=== PATIENT | male | born 1955 | race Caucasian/White ===

== ENCOUNTER 2017-09-18 09:25 | Emergency (ER) | payer BC, OTHER ==
[2017-09-18] MEDS ORDERED: Sodium Chloride 0.9% 10 ML Syringe FLUSH PRN (10:16)
[2017-09-18] MEDS ORDERED: HYDROmorphone 0.5 MG/0.5 ML SYRINGE IVPUSH ONE (10:17)
[2017-09-18] MEDS ORDERED: Sodium Chloride 0.9% 500 ML IV ONE (10:18)
[2017-09-18] MEDS ORDERED: Ondansetron 4 MG/2 ML SDV IVPUSH ONE (10:18)
--- NOTE | 2017-09-18 12:13 | CT ---
CT abdomen and pelvis Technique: Multiple axial sections were obtained from above the dome of the diaphragm inferiorly to the pubic symphysis. Intravenous and oral contrast not utilized. Study has been performed as a ureteral stone protocol. Findings: Inflammatory change is seen around the right kidney. Right collecting system is dilated as as well as mildly dilated right ureter. These findings are caused by an obstructing 6.8 mm stone within the distal right ureter at the UVJ. No other abnormal calcifications are seen along the course of the ureters. Visualized lung bases shows nothing acute. Noncontrast appearance of the liver appears within normal limits. Spleen appears within normal limits. Adrenal glands show no nodule. Pancreas is within normal limits. Gallbladder contains no calcified gallstones. Air collection is seen next to the pancreas most likely representing a duodenal diverticulum. Aorta shows atherosclerotic change without aneurysm. No retroperitoneal adenopathy or mesenteric abnormalities are seen. Diverticuli are seen within the sigmoid and descending colon. No pelvic mass or adenopathy is seen. Bone window settings were reviewed which shows slight degenerative change within the spine. Impression: 1. Findings as noted above caused by a distal right ureteral obstructing stone located at the UVJ measuring 6.8 mm. 2. Other incidental findings. Diagnostic code #3
--- NOTE | 2017-09-18 12:47 | EDM.PDOC ---
ED HPI GENERAL MEDICAL PROBLEM - General Chief Complaint: Flank Pain Stated Complaint: BACK PAIN Time Seen by Provider: 09/18/17 10:11 Source of Information: Reports: Patient, RN Notes Reviewed - History of Present Illness INITIAL COMMENTS - FREE TEXT/NARRATIVE: 61-year-old male comes in with right-sided flank and back discomfort. He had onset of this pain about 5 hours prior to arrival. The pain came on fairly suddenly and is described as a sharp achy discomfort of the right flank and back radiating around to the right lower abdomen toward but not into the right groin. He has had some mild nausea with this, no vomiting. Diaphoresis that is gone at this time. Abdominal discomfort. No chest pain. No unusual dizziness. History of prior kidney stone quite a few years ago. Right Flank Pain Score (Numeric/FACES): 10 - Related Data Allergies Allergy/AdvReac Type Severity Reaction Status Date / Time No Known Allergies Allergy Verified 09/18/17 09:43 Home Meds: Home Meds Acetaminophen/oxyCODONE [Percocet 325-5 MG] 1 each PO Q6HR PRN #20 tab 09/18/17 [Rx] Aspirin [Ecotrin] 81 mg PO DAILY 09/18/17 [History] Tamsulosin [Tamsulosin 24 Hr] 0.4 mg PO DAILY #7 cap.er 09/18/17 [Rx] Triamterene/Hydrochlorothiazid [Triamterene-HCTZ 37.5-25 MG] 1 tab PO DAILY [History] Vitamin B Complex 1 each PO DAILY 09/18/17 [History] atorvaSTATin [Lipitor] 20 mg PO BEDTIME 09/18/17 [History] metFORMIN [Glucophage] 1,000 mg PO BID 09/18/17 [History] Past Medical History HEENT History: Reports: Impaired Vision Cardiovascular History: Reports: High Cholesterol, Hypertension Respiratory History: Reports: Sleep Apnea Other Respiratory History: c pap at night Gastrointestinal History: Reports: GERD Genitourinary History: Reports: Renal Calculus Endocrine/Metabolic History: Reports: Diabetes, Type I - Past Surgical History HEENT Surgical History: Reports: Tonsillectomy Social & Family History - Tobacco Use Smoking Status *Q: Never Smoker Second Hand Smoke Exposure: No - Caffeine Use Caffeine Use: Reports: Coffee - Recreational Drug Use Recreational Drug Use: No ED ROS GENERAL - Review of Systems Review Of Systems: See Below Constitutional: Reports: Diaphoresis. Denies: Fever, Chills HEENT: Reports: No Symptoms (Gone) Respiratory: Denies: Shortness of Breath, Pleuritic Chest Pain Cardiovascular: Denies: Chest Pain GI/Abdominal: Reports: Abdominal Pain, Nausea. Denies: Diarrhea, Hematochezia, Melena, Vomiting Musculoskeletal: Reports: Back Pain. Denies: Neck Pain, Shoulder Pain, Leg Pain Skin: Denies: Rash Neurological: Denies: Dizziness, Headache, Numbness, Tingling, Trouble Speaking , Weakness ED EXAM, RENAL/ - Physical Exam Exam: See Below General Appearance: Alert, Moderate Distress Eye Exam: Bilateral Eye: PERRL Throat/Mouth: Normal Inspection Head: Atraumatic. No: Facial Swelling Neck: Supple, Full Range of Motion Respiratory/Chest: No Respiratory Distress, Lungs Clear, Normal Breath Sounds Cardiovascular: Regular Rate, Rhythm GI/Abdominal: Soft, Non-Tender. No: Guarding, Rebound Back Exam: CVA Tenderness (R) (Mild) Extremities: Normal Inspection, Normal Range of Motion. No: Leg Pain, Redness Neurological: Alert, Oriented, No Motor/Sensory Deficits Skin Exam: Warm, Dry, Normal Color EKG INTERPRETATION EKG Date: 09/18/17 Rhythm: Other (Sinus bradycardia) Rate (Beats/Min): 41 [place]: Normal P-Wave: Present QRS: Normal ST-T: Normal Course - Vital Signs Last Recorded V/S: Last Vital Signs Temp 96.8 F 09/18/17 09:43 Pulse 52 L 09/18/17 09:43 Resp 15 09/18/17 09:43 BP 126/95 H 09/18/17 09:43 Pulse Ox 99 09/18/17 09:43 - Orders/Labs/Meds Orders: Active Orders 24 hr Category Date Time Status EKG 12 Lead [EKG Documentation Completion] [RC] STAT Care 09/18/17 10:21 Active Peripheral IV Care [RC] . DIRECTED Care 09/18/17 10:17 Active Peripheral IV Insertion Adult [OM.PC] Stat Oth 09/18/17 10:16 Ordered Labs: Laboratory Tests 09/18/17 Range/Units 10:38 Urine Color Yellow (Yellow) Urine Appearance Clear (Clear) Urine pH 6.0 (5.0-8.0) Ur Specific [place] 1.025 (1.005-1.030) Urine Protein 2+ H (Negative) Urine Glucose (UA) 2+ H (Negative) Urine Ketones 2+ H (Negative) Urine Occult Blood 3+ H (Negative) Urine Nitrite Negative (Negative) Urine Bilirubin Negative (Negative) Urine Urobilinogen 0.2 (0.2-1.0) Ur Leukocyte Esterase Negative (Negative) Urine RBC 50-75 H (0-5) /hpf Urine WBC 0-5 (0-5) /hpf Ur Epithelial Cells 0-5 (0-5) /hpf Urine Bacteria Few (FEW) /hpf Fine Granular Casts 0-5 (0-5) /lpf Urine Mucus Moderate H (FEW) /hpf Meds: Medications Discontinued Medications Generic Name Dose Route Start Last Admin Trade Name Freq PRN Reason Stop Dose Admin Hydromorphone HCl 1 mg 09/18/17 10:17 09/18/17 10:33 Dilaudid IVPUSH 09/18/17 10:18 1 mg ONETIME ONE Administration Sodium Chloride 500 mls @ 999 mls/hr 09/18/17 10:18 09/18/17 10:32 Normal Saline IV 09/18/17 10:48 999 mls/hr .BOLUS ONE Administration Ondansetron HCl 4 mg 09/18/17 10:18 09/18/17 10:32 Zofran IVPUSH 09/18/17 10:19 4 mg ONETIME ONE Administration Sodium Chloride 10 ml 09/18/17 10:16 09/18/17 10:34 Saline Flush FLUSH 10 ml ASDIRECTED PRN Administration Keep Vein Open - Re-Assessments/Exams Free Text/Narrative Re-Assessment/Exam: 09/18/17 15:20 Patient was given Zofran 4 mg IV for nausea, 500 mL normal saline, Dilaudid 1 mg IV for pain. That he obtained almost complete relief of his discomfort. CT abdomen pelvis without contrast showed a 6.8 mm stone distal right UVJ, see radiology report for details. I did offer to call [facility] and try set up a follow-up appointment or otherwise to have his own physician's nurse help make those arrangements in the morning. They said that they did want to see the Urologist if possible that took care of who I believe was a grandchild of theirs and provided excellent care. They thought it was Dr Banks, than later said Dr Rosario. I discussed with them that if I call today it would be whoever was orthotic practitioner, that they are all very capable. While trying to decide I did become tied up with a more critical patient. They elected to leave, ask his clinic nurse and provider if needed to help make referral arrangements if he does not pass this stone by morning. I did inform him that he may be able to pass it but statistically a stone of this size will likely need retrieval. Disharge instr. as documented. Departure - Departure Time of Disposition: 12:47 Disposition: Home, Self-Care 01 Condition: Fair Clinical Impression: Ureteric colic, Kidney stone on left side - Discharge Information Prescriptions: Acetaminophen/oxyCODONE [Percocet 325-5 MG] 1 each PO Q6HR PRN #20 tab PRN Reason: Pain Tamsulosin [Tamsulosin 24 Hr] 0.4 mg PO DAILY #7 cap.er Instructions: Kidney Stones, [id number] Referrals: Ayad Queen MD [Primary Care Provider] - Forms: ED Department Discharge Additional Instructions: Strain all urine to watch for stone, Tylenol for mild to moderate discomfort or Percocet if needed for more severe pain, Flomax 0.4 mg daily starting today, do not drive or work when taking Percocet as that is a strong narcotic medication, call Dr. Bañuelos's office as discussed tomorrow morning to arrange for help to see Dr. Banks if possible or otherwise [employer] Urologist next available appointment preferably within the next 2-3 days. Return to ED as needed if symptoms worsening in any way. - My Orders Last 24 Hours: My Active Orders 09/18/17 10:16 Peripheral IV Insertion Adult [OM.PC] Stat 09/18/17 10:17 Peripheral IV Care [RC] . DIRECTED 09/18/17 10:21 EKG 12 Lead [EKG Documentation Completion] [] STAT - Assessment/Plan Last 24 Hours: My Active Orders 09/18/17 10:16 Peripheral IV Insertion Adult [OM.PC] Stat 09/18/17 10:17 Peripheral IV Care [RC] . DIRECTED 09/18/17 10:21 EKG 12 Lead [EKG Documentation Completion] [] STAT
== END 2017-09-18 13:38 | disposition home or self-care (01) ==
LOC: JD.ED 09:25
DX: N20.2 Calculus of kidney with calculus of ureter (principal); E78.00 Pure hypercholesterolemia, unspecified; E10.9 Type 1 diabetes mellitus without complications; I10 Essential (primary) hypertension; Z79.82 Long term (current) use of aspirin; Z79.84 Long term (current) use of oral hypoglycemic drugs; Z79.899 Other long term (current) drug therapy
CPT/HCPCS: 74176; 81001; 93005; 96361; 96374; 96375; 99285; J1170; J2405; J7040; J7050; 93010; 99284

== ENCOUNTER 2019-01-28 11:32 | Emergency (ER) | payer BC ==
[2019-01-28] MEDS ORDERED: Ondansetron 4 MG/2 ML SDV IVPUSH ONE (11:52)
[2019-01-28] MEDS ORDERED: Sodium Chloride 0.9% 10 ML Syringe FLUSH PRN (11:52)
[2019-01-28] MEDS ORDERED: Ketorolac 30 MG/ML SDV IVPUSH ONE (11:54)
[2019-01-28] MEDS ORDERED: HYDROmorphone 1 MG/ML Syringe IVPUSH ONE (11:54)
[2019-01-28] MEDS ORDERED: Sodium Chloride 0.9% 1,000 ML IV SCH (12:00)
--- NOTE | 2019-01-28 13:25 | CT ---
CT abdomen and pelvis Technique: Multiple axial sections were obtained from above the dome of the diaphragm inferiorly through the pubic symphysis. Intravenous and oral contrast not utilized. Study was performed as a renal stone protocol. Comparison: Previous CT abdomen and pelvis study of 09/18/17. Findings: Mild left-sided hydronephrosis is seen. Findings are caused by an obstructing stone within the proximal left ureter measuring about 5 mm in size. This obstruction causes slight inflammatory change around the left kidney. No other abnormal calcifications are seen within the kidneys or ureters. Visualized lung bases showed nothing acute. Noncontrast appearance of the liver and spleen shows no discrete abnormality. Adrenal glands show no nodule. Pancreas shows no discrete abnormality. Air-filled duodenal diverticulum is noted next to the pancreas. Gallbladder shows several small calcifications believed to represent gallstones. Aorta shows atherosclerotic calcification without aneurysmal dilatation. No retroperitoneal adenopathy or mesenteric abnormalities are seen. Appendix is seen which is normal in size. Diverticuli are seen within the sigmoid and descending colon. No inflammatory change of diverticulitis is seen. No free fluid is seen. Bone window settings were reviewed which show slight degenerative change throughout the spine. Impression: 1. Obstructing 5 mm stone within the proximal left ureter. 2. Colonic diverticuli most prominent within the sigmoid colon without diverticulitis. 3. Other findings which are believed to be incidental. Diagnostic code #3
--- NOTE | 2019-01-28 13:42 | EDM.PDOC ---
ED HPI GENERAL MEDICAL PROBLEM - General Chief Complaint: Flank Pain Stated Complaint: LT SIDE PAIN Time Seen by Provider: 01/28/19 11:47 Source of Information: Reports: Patient History Limitations: Reports: No Limitations - History of Present Illness INITIAL COMMENTS - FREE TEXT/NARRATIVE: The patient presents with left flank pain that radiates to the left abdomen. He has nausea but no vomiting. He has no fever or chills. He has no chest pain or shortness of breath. He has a history of kidney stones but he says this feels a little different where the pain is constant this time. He has no dysuria or hematuria. He has no injury to his back. Onset: Sudden Duration: Hour(s): (1.5) Location: Reports: Back (Left flank) Quality: Reports: Sharp Severity: Severe Improves with: Reports: None Worsens with: Reports: None Associated Symptoms: Reports: Nausea/Vomiting. Denies: Chest Pain, Cough, Fever /Chills, Headaches, Shortness of Breath Left Flank Pain Score (Numeric/FACES): 8 - Related Data Allergies Allergy/AdvReac Type Severity Reaction Status Date / Time No Known Allergies Allergy Verified 01/28/19 11:52 Home Meds: Home Meds Aspirin [Ecotrin EC] 81 mg PO DAILY 09/18/17 [History] metFORMIN [Glucophage] 1,000 mg PO BID 09/18/17 [History] FLUoxetine HCl [Fluoxetine HCl] 40 mg PO DAILY 01/28/19 [History] Hydrocodone/Acetaminophen [Hydrocodon-Acetaminophen 5-325] 1 - 2 each PO Q6HR PRN #20 tablet 01/28/19 [Rx] Losartan/Hydrochlorothiazide [Losartan-HCTZ 50-12.5 MG] 1 tab PO DAILY 01/28/19 [History] Tamsulosin HCl [Flomax] 0.4 mg PO DAILY #7 cap.er.24h 01/28/19 [Rx] Past Medical History HEENT History: Reports: Impaired Vision Cardiovascular History: Reports: High Cholesterol, Hypertension Respiratory History: Reports: Sleep Apnea Other Respiratory History: c pap at night Gastrointestinal History: Reports: GERD Genitourinary History: Reports: Renal Calculus Endocrine/Metabolic History: Reports: Diabetes, Type II - Past Surgical History HEENT Surgical History: Reports: Tonsillectomy Social & Family History - Family History Family Medical History: Noncontributory - Tobacco Use Smoking Status *Q: Former Smoker Used Tobacco, but Quit: Yes Month/Year Tobacco Last Used: 30 - Caffeine Use Caffeine Use: Reports: Coffee - Recreational Drug Use Recreational Drug Use: No - Living Situation & Occupation 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 Denies: Diarrhea, Vomiting : Reports: No Symptoms Musculoskeletal: Reports: Back Pain (Left flank) ED EXAM, RENAL/ - Physical Exam Exam: See Below Exam Limited By: No Limitations General Appearance: Alert, No Apparent Distress Ears: Normal External Exam Nose: Normal Inspection Head: Atraumatic, Normocephalic Neck: Normal Inspection Respiratory/Chest: No Respiratory Distress, Lungs Clear, Normal Breath Sounds Cardiovascular: Regular Rate, Rhythm, No Edema, No Murmur GI/Abdominal: Soft, Non-Tender, No Organomegaly, No Mass Back Exam: CVA Tenderness (L) Extremities: Normal Inspection Neurological: Alert, Oriented, No Motor/Sensory Deficits Course - Vital Signs Last Recorded V/S: Last Vital Signs Temp 97.1 F 01/28/19 11:49 Pulse 60 01/28/19 11:49 Resp 22 H 01/28/19 11:49 BP 159/80 H 01/28/19 11:49 Pulse Ox 100 01/28/19 11:49 - Orders/Labs/Meds Orders: Active Orders 24 hr Category Date Time Status Peripheral IV Care [RC] . DIRECTED Care 01/28/19 11:53 Active Sodium Chloride 0.9% [Normal Saline] 1,000 ml Med 01/28/19 12:00 Active IV ASDIRECTED Sodium Chloride 0.9% [Saline Flush] Med 01/28/19 11:52 Active 10 ml FLUSH ASDIRECTED PRN ED Antiemetic Medication Reflex [OM.PC] Stat Oth 01/28/19 11:53 Ordered Peripheral IV Insertion Adult [OM.PC] Stat Oth 01/28/19 11:52 Ordered Medication Orders Sodium Chloride (Normal Saline) 1,000 mls @ 125 mls/hr IV ASDIRECTED [facility] Last Admin: 01/28/19 12:18 Dose: 125 mls/hr Sodium Chloride (Saline Flush) 10 ml FLUSH ASDIRECTED PRN PRN Reason: Keep Vein Open Last Admin: 01/28/19 12:20 Dose: 10 ml Labs: Laboratory Tests 01/28/19 01/28/19 01/28/19 Range/Units 12:10 12:10 13:25 WBC 12.36 H (4.23-9.07) K/mm3 RBC 4.73 (4.63-6.08) M/mm3 Hgb 13.9 (13.7-17.5) gm/dl Hct 40.4 (40.1-51.0) % MCV 85.4 (79.0-92.2) fl MCH 29.4 (25.7-32.2) pg MCHC 34.4 (32.2-35.5) g/dl RDW Std Deviation 45.5 H (35.1-43.9) fL Plt Count 218 (163-337) K/mm3 MPV 11.4 (9.4-12.3) fl Neut % (Auto) 80.8 H (34.0-67.9) % Lymph % (Auto) 11.9 L (21.8-53.1) % [place] % (Auto) 6.6 (5.3-12.2) % Eos % (Auto) 0.5 L (0.8-7.0) Baso % (Auto) 0.2 (0.1-1.2) % Neut # (Auto) 10.00 H (1.78-5.38) K/mm3 Lymph # (Auto) 1.47 (1.32-3.57) K/mm3 [place] # (Auto) 0.81 (0.30-0.82) K/mm3 Eos # (Auto) 0.06 (0.04-0.54) K/mm3 Baso # (Auto) 0.02 (0.01-0.08) K/mm3 Sodium 137 (136-145) mEq/L Potassium 3.6 (3.5-5.1) mEq/L Chloride 100 (98-107) mEq/L Carbon Dioxide 23 (21-32) mEq/L Anion Gap 17.6 H (5-15) BUN 28 H (7-18) mg/dL Creatinine 1.3 (0.7-1.3) mg/dL Est Cr Clr Drug Dosing TNP Estimated GFR (MDRD) 56 (>60) mL/min BUN/Creatinine Ratio 21.5 H (14-18) Glucose 194 H (80-115) mg/dL Calcium 9.2 (8.5-10.1) mg/dL Total Bilirubin 0.4 (0.2-1.0) mg/dL AST 16 (15-37) U/L ALT 32 (16-63) U/L Alkaline Phosphatase 75 (46-116) U/L Total Protein 8.1 (6.4-8.2) g/dl Albumin 3.7 (3.4-5.0) g/dl Globulin 4.4 gm/dL Albumin/Globulin Ratio 0.8 L (1-2) Lipase 79 (73-393) U/L Urine Color Yellow (Yellow) Urine Appearance Slt cloudy H (Clear) Urine pH 6.0 (5.0-8.0) Ur Specific [place] 1.025 (1.005-1.030) Urine Protein 1+ H (Negative) Urine Glucose (UA) Trace H (Negative) Urine Ketones 3+ H (Negative) Urine Occult Blood 3+ H (Negative) Urine Nitrite Negative (Negative) Urine Bilirubin Negative (Negative) Urine Urobilinogen 0.2 (0.2-1.0) Ur Leukocyte Esterase Negative (Negative) Urine RBC 10-20 H (0-5) /hpf Urine WBC 0-5 (0-5) /hpf Ur Squamous Epith Cells Not seen (0-5) /hpf Urine Bacteria Few (FEW) /hpf Urine Mucus Few (FEW) /hpf Meds: Medications Generic Name Dose Route Start Last Admin Trade Name Freq PRN Reason Stop Dose Admin Sodium Chloride 1,000 mls @ 125 mls/hr 01/28/19 12:00 01/28/19 12:18 Normal Saline IV 125 mls/hr ASDIRECTED KIERSTEN Administration Sodium Chloride 10 ml 01/28/19 11:52 01/28/19 12:20 Saline Flush FLUSH 10 ml ASDIRECTED PRN Administration Keep Vein Open Discontinued Medications Generic Name Dose Route Start Last Admin Trade Name Freq PRN Reason Stop Dose Admin Hydromorphone HCl 1 mg 01/28/19 11:54 01/28/19 12:15 Dilaudid IVPUSH 01/28/19 11:55 1 mg ONETIME ONE Administration Ketorolac Tromethamine 30 mg 01/28/19 11:54 01/28/19 12:12 Toradol IVPUSH 01/28/19 11:55 30 mg ONETIME ONE Administration Ondansetron HCl 4 mg 01/28/19 11:52 01/28/19 12:09 Zofran IVPUSH 01/28/19 11:53 4 mg ONETIME ONE Administration - Re-Assessments/Exams Free Text/Narrative Re-Assessment/Exam: 01/28/19 14:12 I ordered an IV NS at 125mL/hr, zofran 4mg IV, dilaudid 1mg IV, toradol 30mg IV , labs, UA and a CT of his abdomen and pelvis without contrast. His WBC was elevated at 12.76. His anion gap was elevated at 17.6. His BUN was elevated at 28. His glucose is 194. His UA shows blood but no UTI. His CT shows obstructing 5mm stone within the proximal left ureter. Colonic diverticuli most prominent within the sigmoid colon without diverticulitis. Other findings which are believed to be incidental. He feels better. I will discharge him home. Departure - Departure Time of Disposition: 14:30 Disposition: Home, Self-Care 01 Condition: Good Clinical Impression: Ureteric colic, Kidney stone on left side, Ureteral calculus, left - Discharge Information *PRESCRIPTION DRUG MONITORING PROGRAM REVIEWED*: No *COPY OF PRESCRIPTION DRUG MONITORING REPORT IN PATIENT SHANNA: No Prescriptions: Hydrocodone/Acetaminophen [Hydrocodon-Acetaminophen 5-325] 1 - 2 each PO Q6HR PRN #20 tablet PRN Reason: Pain Tamsulosin HCl [Flomax] 0.4 mg PO DAILY #7 cap.er.24h Referrals: Ayad Queen MD [Primary Care Provider] - Vick Ragsdale MD [Ordering Only Provider] - 1 Week Forms: ED Department Discharge Additional Instructions: Drink plenty of fluids. Take motrin or tylenol for pain. If that does not help , try the hydrocodone. Take the flomax daily. Please return if you are worse. If you do not pass a stone within a week, follow up with Dr Ragsdale. - My Orders Last 24 Hours: My Active Orders 01/28/19 11:52 Sodium Chloride 0.9% [Saline Flush] 10 ml FLUSH ASDIRECTED PRN Peripheral IV Insertion Adult [OM.PC] Stat 01/28/19 11:53 Peripheral IV Care [RC] . DIRECTED ED Antiemetic Medication Reflex [OM.PC] Stat 01/28/19 12:00 Sodium Chloride 0.9% [Normal Saline] 1,000 ml IV ASDIRECTED - Assessment/Plan Last 24 Hours: My Active Orders 01/28/19 11:52 Sodium Chloride 0.9% [Saline Flush] 10 ml FLUSH ASDIRECTED PRN Peripheral IV Insertion Adult [OM.PC] Stat 01/28/19 11:53 Peripheral IV Care [RC] . DIRECTED ED Antiemetic Medication Reflex [OM.PC] Stat 01/28/19 12:00 Sodium Chloride 0.9% [Normal Saline] 1,000 ml IV ASDIRECTED
== END 2019-01-28 14:50 | disposition home or self-care (01) ==
LOC: JD.ED 11:32
DX: N13.2 Hydronephrosis with renal and ureteral calculous obstruction (principal); I10 Essential (primary) hypertension; E11.9 Type 2 diabetes mellitus without complications; Z79.82 Long term (current) use of aspirin; Z79.84 Long term (current) use of oral hypoglycemic drugs; Z79.899 Other long term (current) drug therapy; Z87.891 Personal history of nicotine dependence
CPT/HCPCS: 36415; 74176; 80053; 81001; 83690; 85025; 96361; 96374; 96375; 99284; J1170; J1885; J2405; J7040